=== PATIENT | female | born 1990 | race African-American/Black ===

== ENCOUNTER 2019-12-01 12:11 | Emergency (ER) | payer BC ==
[~2019-12-01] VITALS: Ht 175.3 cm; Wt 77.0 kg
--- NOTE | 2019-12-01 12:39 | PHYS DOC ---
Past Medical History Past Medical History: No Pertinent History Past Surgical History: Other Additional Past Surgical Histo: LEEP, D&C Alcohol Use: Occasionally Adult General Chief Complaint Chief Complaint: VAGINAL BLEEDING HPI HPI Patient is a 29 year old [female] who presents with [vaginal bleeding and clots. Patient reports she had a LEEP procedure performed approximately 10 days ago for precancerous cells, reports she has had some mild bleeding over the last few days, however today she noticed a large number of clots. States she has continued to have some bleeding. States she has back pain, which improves after she passes clots. States she had an episode today where she did a syncopal episode after passing clots, states that this time she is feeling better. Denies any dizziness. Denies any discomfort, other than back pain prior to passing out. Reports her procedure done at [facility]] Review of Systems Review of Systems Constitutional: Denies fever or chills [] Eyes: Denies change in visual acuity, redness, or eye pain [] HENT: Denies nasal congestion or sore throat [] Respiratory: Denies cough or shortness of breath [] Cardiovascular: No additional information not addressed in HPI [] GI: Denies abdominal pain, nausea, vomiting, bloody stools or diarrhea [] : Denies dysuria, reports large blood clots today and steady flow of vaginal bleeding [] Musculoskeletal: Reports back pain prior to passing clots, which is relieved by passing clots[] Integument: Denies rash or skin lesions [] Neurologic: Denies headache, focal weakness or sensory changes [] Endocrine: Denies polyuria or polydipsia [] All other systems were reviewed and found to be within normal limits, except as documented in this note. Allergies Allergies Allergies Coded Allergies Type Severity Reaction Last Updated Verified No Known Drug Allergies 12/01/19 No Physical Exam Physical Exam Constitutional: Well developed, well nourished, no acute distress, non-toxic appearance. [] HENT: Normocephalic, atraumatic, bilateral external ears normal, oropharynx moist, no oral exudates, nose normal. [] Eyes: PERRLA, EOMI, conjunctiva normal, no discharge. [] Cardiovascular:Heart rate regular rhythm, no murmur [] Lungs & Thorax: Bilateral breath sounds clear to auscultation [] Abdomen: Bowel sounds normal, soft, no tenderness, no masses, no pulsatile masses. Reports increase of bleeding with palpation to abdomen. [] Skin: Warm, dry, no erythema, no rash. [] Back: No tenderness, no CVA tenderness. [] Extremities: No tenderness, no cyanosis, no clubbing, ROM intact, no edema. [] Neurologic: Alert and oriented X 3, normal motor function, normal sensory function, no focal deficits noted. [] Psychologic: Affect normal, judgement normal, mood normal. [] Pelvic Exam - Large amount of blood and clots noted in vaginal vault. Unable to identify cervix due to clots and bleeding. Current Patient Data Vital Signs Vital Signs Date Time Temp Pulse Resp B/P (MAP) Pulse Ox O2 Delivery O2 Flow Rate FiO2 12/01/19 13:30 90 14 126/67 (86) Room Air 12/01/19 13:00 95 12/01/19 12:15 98.4 98.4 Lab Values Laboratory Tests Test 12/01/19 11:25 White Blood Count 9.4 x10^3/uL (4.0-11.0) Red Blood Count 4.13 x10^6/uL (3.50-5.40) Hemoglobin 12.4 g/dL (12.0-15.5) Hematocrit 36.4 % (36.0-47.0) Mean Corpuscular Volume 88 fL (79-100) Mean Corpuscular Hemoglobin 30 pg (25-35) Mean Corpuscular Hemoglobin Concent 34 g/dL (31-37) Red Cell Distribution Width 12.9 % (11.5-14.5) Platelet Count 349 x10^3/uL (140-400) Neutrophils (%) (Auto) 74 % (31-73) H Lymphocytes (%) (Auto) 20 % (24-48) L Monocytes (%) (Auto) 5 % (0-9) Eosinophils (%) (Auto) 1 % (0-3) Basophils (%) (Auto) 0 % (0-3) Neutrophils # (Auto) 7.0 x10^3/uL (1.8-7.7) Lymphocytes # (Auto) 1.8 x10^3/uL (1.0-4.8) Monocytes # (Auto) 0.5 x10^3/uL (0.0-1.1) Eosinophils # (Auto) 0.0 x10^3/uL (0.0-0.7) Basophils # (Auto) 0.0 x10^3/uL (0.0-0.2) Prothrombin Time 13.6 SEC (11.7-14.0) Prothrombin Time INR 1.1 (0.8-1.1) Sodium Level 139 mmol/L (136-145) Potassium Level 3.7 mmol/L (3.5-5.1) Chloride Level 104 mmol/L (98-107) Carbon Dioxide Level 25 mmol/L (21-32) Anion Gap 10 (6-14) Blood Urea Nitrogen 12 mg/dL (7-20) Creatinine 1.1 mg/dL (0.6-1.0) H Estimated GFR (Cockcroft-Gault) 58.3 BUN/Creatinine Ratio 11 (6-20) Glucose Level 119 mg/dL (70-99) H Calcium Level 9.5 mg/dL (8.5-10.1) Total Bilirubin 0.2 mg/dL (0.2-1.0) Aspartate Amino Transferase (AST) 18 U/L (15-37) Alanine Aminotransferase (ALT) 17 U/L (14-59) Alkaline Phosphatase 41 U/L (46-116) L Total Protein 8.1 g/dL (6.4-8.2) Albumin 3.7 g/dL (3.4-5.0) Albumin/Globulin Ratio 0.8 (1.0-1.7) L Laboratory Tests 12/01/19 11:25 Laboratory Tests 12/01/19 11:25 EKG EKG Sinus rhythm without ectopy. no STEMI per Dr Do at 1226[] Radiology/Procedures Radiology/Procedures [] Course & Med Decision Making Course & Med Decision Making Pertinent Labs and Imaging studies reviewed. (See chart for details) [Discussed with ANDRESSA Jacobs, with recommendation for patient to follow up with her surgeon at [facility]. May put patient on Progesterone 10mg BID x 5 days for bleeding. Discussed findings with patient, patient has no further questions or concerns in agreement with plan of care Dragon Disclaimer Dragon Disclaimer This electronic medical record was generated, in whole or in part, using a voice recognition dictation system. Departure Departure Impression: Primary Impression: Postoperative vaginal bleeding following genitourinary procedure Disposition: HOME, SELF-CARE Condition: STABLE Patient Instructions: Abnormal Uterine Bleeding Additional Instructions: As we discussed, call your OBGYN at [facility] for an appointment. Continue to use pads for bleeding. At the recommendation of our OBGYN, you can take the progesterone as prescribed to help decrease your bleeding. Scripts Progesterone,Micronized (PROGESTERONE) 100 Mg Capsule 100 MG PO BID for 5 Days, #10 CAP Prov: WAGNER MACIEL APRN 12/01/19 WAGNER MACIEL APRN Dec 01, 2019 12:39
[2019-12-01 13:00] LABS: BASO % 0 % (0-3); EOS % 1 % (0-3); HEMATOCRIT 36.4 % (36.0-47.0); HEMOGLOBIN 12.4 g/dL (12.0-15.5); LYMPH # 1.8 x10^3/uL (1.0-4.8); LYMPH % 20 % (24-48); MEAN CORPUSCULAR HEMOGLOBIN 30 pg (25-35); MEAN CORPUSCULAR HGB CONC 34 g/dL (31-37); MEAN CORPUSCULAR VOLUME 88 fL (79-100); MONO # 0.5 x10^3/uL (0.0-1.1); MONO % 5 % (0-9); NEUT % 74 % (31-73); PLATELET COUNT 349 x10^3/uL (140-400); RED BLOOD COUNT 4.13 x10^6/uL (3.50-5.40); RED CELL DISTRIBUTION WIDTH 12.9 % (11.5-14.5); WHITE BLOOD COUNT 9.4 x10^3/uL (4.0-11.0)
[2019-12-01 13:09] LABS: CALCIUM 9.5 mg/dL (8.5-10.1); CREATININE 1.1 mg/dL (0.6-1.0); GFR 58.3; POTASSIUM 3.7 mmol/L (3.5-5.1)
[2019-12-01 13:22] LABS: PROTHROMBIN TIME PATIENT 13.6 SEC (11.7-14.0)
[2019-12-01 13:23] LABS: ALBUMIN 3.7 g/dL (3.4-5.0); ALBUMIN/GLOBULIN RATIO 0.8 (1.0-1.7); TOTAL BILIRUBIN 0.2 mg/dL (0.2-1.0); TOTAL PROTEIN 8.1 g/dL (6.4-8.2)
[2019-12-01 13:30] VITALS: BP 126/67
[2019-12-01] MEDS ORDERED: PROG100C10 PO (14:21)
--- NOTE | 2019-12-02 16:48 | EKG ---
[facility] [address] [place] [id number] Test Date: 2019-12-01 Test Time: 12:26:19 Pat Name: ELEONORA MARS Department: Room: Gender: F Medical Receptionist Biller: : [id number] Requested By: WAGNER MACIEL Order Number: [id number] Reading MD: Measurements Intervals Sebastian Rate: 70 P: MD: QRS: 57 QRSD: 76 T: 25 QT: 372 QTc: 404 Interpretive Statements IRREGULAR RHYTHM, NO P-WAVE FOUND NO SPECIFIC ECG ABNORMALITIES RI6.01 No previous ECG available for comparison
== END 2019-12-01 14:30 | disposition home or self-care (01) ==
LOC: ER 12:11
DX: N99.820 Postprocedural hemorrhage of a genitourinary system organ or structure following a genitourinary system procedure (principal); R55 Syncope and collapse
CPT/HCPCS: 36415; 80053; 85025; 85610; 93005; 99285-25